=== PATIENT | male | born 1960 | race African-American/Black ===

== ENCOUNTER 2022-10-11 10:08 | Emergency (ER) | payer MEDICARE, OTHER, SELFPAY ==
[2022-10-11 10:10] VITALS: BP 134/74; PULSE 80; RESP 17; TEMP 36.6; O2SAT 100
--- NOTE | 2022-10-11 11:17 | ED.WOUNDLAC ---
HPI - Wound/Laceration General Chief Complaint: Wound/Laceration Stated Complaint: boil on buttocks and rt ear pain Time Seen by Provider: 10/11/22 10:37 Source: patient and RN notes reviewed Mode of arrival: ambulatory Limitations: no limitations History of Present Illness HPI narrative: This is a 62 year old male that presents to the ER for an abscess on his buttocks noted over the last week. Reports redness, swelling and drainage to the area. He also is reporting right sided otalgia ongoing over the last couple of weeks. Denies fevers. Review of Systems Review of Systems: CONSTITUTIONAL: Denies fever ENT: Reports otalgia. Denies rhinorrhea, congestion SKIN: Reports redness and swelling All systems reviewed & are unremarkable except as noted in HPI and below PMFSH Past Medical History Medical History (Updated 10/11/22 @ 13:51 by Inna Mariscal PA-C) History of hypertension Social History Social History (Updated 10/11/22 @ 11:23 by Inna Mariscal PA-C) Substance use: never Exam Narrative: GENERAL: Well-appearing, well-nourished, and in no acute distress. HEAD: Normocephalic, atraumatic. EYES: EOMI. ENT: Nares clear, no rhinorrhea or epistaxis. Mucous membranes moist. Normal external auditory canal. Bilateral TMs pearly bernstein non-bulging NECK: Supple. No adenopathy or masses. CHEST: Clear to auscultation. No respiratory distress. No wheezes rales or rhonchi HEART: Regular rate and rhythm. No murmur heard. Normal peripheral pulses. EXTREMITIES: Normal range of motion. No edema. SKIN: Warm, dry, no rash. Left buttock with mild to moderate sized area of edema and induration, tender to palpation. No erythema or lymphangitic streaking NEURO: No focal deficits. Alert and oriented x3. PSYCH: Normal mood and affect Course Course Emergency Course: Patient agrees with plan of care Vital Signs Vital signs: Vital Signs Temperature 98 F 10/11/22 10:10 Pulse Rate 80 10/11/22 10:10 Respiratory Rate 17 10/11/22 10:10 Blood Pressure 134/74 10/11/22 10:10 Pulse Oximetry 100 10/11/22 10:10 Oxygen Delivery Room Air 10/11/22 10:10 Temperature 98 F 10/11/22 10:10 Pulse Rate 80 10/11/22 10:10 Respiratory Rate 17 10/11/22 10:10 Blood Pressure 134/74 10/11/22 10:10 Pulse Oximetry 100 10/11/22 10:10 Oxygen Delivery Room Air 10/11/22 10:10 Procedures Abscess I/D other: Date of Incision: 10/11/22 Time of Incision: 13:55 Side (if applicable): left Local Anesthetic: lidocaine 1% Amount of anesthesia used (mL): 3 Technique: incised with #11 blade Irrigation: Yes Packing used?: plain I&D Results: Pus and Blood MDM - Wound/Laceration MDM Narrative Medical decision making narrative: Patient presents to the ER for an abscess to the left buttock ongoing over the last week. He is afebrile and nontoxic appearing. Abscess was successfully drained. Patient will be started on oral antibiotics. He was instructed on further wound care. He is to follow-up with primary care provider. He was given warnings to return to the ER Additionally was reporting some ongoing otalgia. His right external auditory canal and TM are normal. No signs of infection Differential Diagnosis Differential diagnosis: Likely abscess and other (cellulitis) Critical Care Time Critical Care Time Critical Care Time: No Discharge Plan Discharge Clinical Impression: Abscess Patient Disposition: Home, Self-Care Condition: Stable Instructions: Antibiotic Form, Abscess (ED) Additional Instructions: Return if symptoms worsen or concerns: any increase in redness, swelling, pain or fever over 101 Take antibiotics as directed. Clean wound with mild soapy water. Apply antibiotic ointment and clean dressing at least three times daily. Warm compresses 3 times a day for 30 minutes each Follow up with primary care in the next 2-3 days for re-evaluation a
--- NOTE | 2022-10-11 12:03 | PC.NURSE ---
barrett lidocain 1% erp sakshi munguia
[2022-10-11] MEDS: LIDOCAINE HCL 1% LOCAL INJ 20 ML VIAL (13:41)
[2022-10-11 14:14] VITALS: PULSE 68; RESP 16; O2SAT 98
== END 2022-10-11 14:15 | disposition home or self-care (01) ==
PROVIDERS: Emergency Provider Physician Assistant; PCP Family Medicine Adolescent Medicine
DX: L02.31 Cutaneous abscess of buttock (principal); I10 Essential (primary) hypertension
CPT/HCPCS: 10061; 87070; 87147; 87181; 87186; 87205; 99283

== ENCOUNTER 2022-10-19 13:47 | Emergency (ER) | payer MEDICARE, OTHER, SELFPAY ==
--- NOTE | ~2022-10-19 | XR_ITS ---
EXAMINATION: XR pelvis 1-2V DATE: 10/19/2022 14:42 INDICATION: Assess for packing material and placed in a boil at the base of the left buttock one week prior. TECHNIQUE: A single lateral view of the pelvis was obtained. COMPARISON: None. FINDINGS: Bone alignment is normal. No fracture. Mild lower lumbar spondylosis. Bilateral hip joint spaces appe ar normal. No soft tissue gas or radiopaque foreign bodies identified. IMPRESSION: 1. Mild lower lumbar spondylosis. No soft tissue gas or radiopaque foreign bodies identified. Reviewed, dictated and finalized at location A. [employer] RELATIONS REPRESENTATIVE IMPRESSION: 1. Mild lower lumbar spondylosis. No soft tissue gas or radiopaque foreign bodi es identified.
--- NOTE | 2022-10-19 13:53 | ED.WOUNDLAC ---
HPI - Wound/Laceration General Stated Complaint: boil on lt buttocks Time Seen by Provider: 10/19/22 14:00 Source: patient and RN notes reviewed Mode of arrival: ambulatory Limitations: dementia History of Present Illness HPI narrative: 62-year-old male presents with concern for follow-up to an abscess incision and drainage that he has done in the emergency room 8 days ago. Reports he had packing placed. It is reports the area drained a lot of pus after the procedure, he reports symptoms have resolved. However, he is concerned because he did not remove the packing from the will and he had not signed it. He reports he did take a bath ?too soon? after his procedure. He denies any current pain, drainage, redness, warmth. Related Data Home Medications Medication Instructions Recorded Confirmed amlodipine 10 mg tablet 20 mg PO DAILY 10/19/22 10/19/22 citalopram 20 mg tablet 20 mg PO DAILY 10/19/22 10/19/22 mirtazapine 45 mg tablet 45 mg PO HS 10/19/22 10/19/22 trazodone 100 mg tablet 100 mg PO HS 10/19/22 10/19/22 Allergies Allergy/AdvReac Type Severity Reaction Status Date / Time No Known Allergies Allergy Verified 10/19/22 14:10 Review of Systems Review of Systems: CONSTITUTIONAL: Denies malaise, chills, sweats, or fever. EYES: Denies redness, or discharge. ENT: Denies rhinorrhea, congestion, swollen lips, swollen tongue CARDIOVASCULAR: Denies chest pain, palpitations, or edema. RESPIRATORY: Denies cough or dyspnea. GASTROINTESTINAL: Denies abdominal pain, nausea, vomiting SKIN: Denies redness, swelling, tenderness. Denies purulent drainage, vesicles, bullae, numbness, pain beyond proportion MUSCULOSKELETAL: Denies joint pain or myalgia. NEUROLOGIC: Denies headache. All systems reviewed & are unremarkable except as noted in HPI and below PMFSH Past Medical History Medical History (Updated 10/19/22 @ 14:51 by Teressa Rose NP) History of hypertension Social History Social History (Updated 10/11/22 @ 11:23 by Inna Mariscal PA-C) Substance use: never Comments At time of signature, agree with nursing past medical, surgical, social and family history. There is no relevant family history pertinent to the presenting complaint Exam Narrative: GENERAL: Well-appearing, well-nourished, and in no acute distress. HEAD: Normocephalic, atraumatic. EYES: PERRLA, conjunctivae clear ENT: Mucous membranes moist. NECK: Supple. No lymphadenopathy CHEST: Clear to auscultation. No respiratory distress. HEART: Regular rate and rhythm. SKIN: Warm, dry. Previous location of the boil has No Erythema, tenderness, or warmth, area still slightly indurated, skin is closed with no palpable foreign body, fluctuation, tenderness, no differentiating tissue to indicate any possible retained foreign body. No vesicles, bullae, necrosis, ecchymosis, crepitus noted. NEURO: Alert and oriented x3. PSYCH: Normal mood and affect Course Course Emergency Course: Discussed limitations of x-ray exam for retained foreign body, however x-ray does not indicate any indication of tissue abnormality in the area of the abscess. Patient was advised to follow-up with his primary care provider as needed for further evaluation. Patient is aware of diagnosis, understands and agrees to treatment plan. Anticipatory guidance given. Patient agrees to follow-up as directed and is aware of reasons to seek care at the emergency department. Portions of this record may have been created with voice recognition software Level of Care: Express Care Visit Vital Signs Vital signs: Reviewed. Critical Care Time Critical Care Time Critical Care Time: No Discharge Plan Discharge Clinical Impression: Follow-up exam Patient Disposition: Home, Self-Care Condition: Stable Instructions: General Patient Instructions Additional Instructions: Your x-ray does not show any evidence of retained packing. Your exam did not reveal any evidence of retain
[2022-10-19 13:56] VITALS: BP 135/83; PULSE 65; RESP 16; TEMP 37.1; O2SAT 100
== END 2022-10-19 14:57 | disposition home or self-care (01) ==
PROVIDERS: Emergency Provider Nurse Practitioner; PCP Family Medicine Adolescent Medicine
DX: L02.31 Cutaneous abscess of buttock (principal); Z48.01 Encounter for change or removal of surgical wound dressing; I10 Essential (primary) hypertension
CPT/HCPCS: 72170